=== PATIENT | female | born 1940 | race Caucasian/White ===

== ENCOUNTER → 2017-04-26 | Day surgery (SDC) | payer MEDICARE, BC ==
[~2017-04-26] VITALS: Ht 160 cm; Wt 67.0 kg
[~2017-04-26] MED LIST: ACETAMINOPHEN/HYDROcodone 325 MG/7.5 MG TAB ONE; ATEN50TA PO; ATOR40TA16 PO; BUPIVACAINE/EPINEPHRINE 0.5% 50 ML VIAL ONE; BUPIVACAINE/EPINEPHRINE 0.5% PF 10 ML VIAL ONE; CART120C PO; CHLORHEXIDINE GLUCONATE 2 % 1 PACK (2 CLOTHS) TOPICAL PRN; COUM5TAB PO; CYCL1TAB29 PO; DIGO0.25 PO; DIPH25CA PO; EPA1000C PO; FENO54TA PO; FLAX100013 PO; FOLBTAB2 PO; FOLITAB PO; FURO40TA PO; GLIM4TAB PO; HYDR-3534 PO; HYDR-3580 PO; INSULIN HUMAN REGULAR 1,000 UNITS/10 ML VIAL SQ PRN; ISOS20TA PO; ISOS30TA15 PO; JANU50TA4 PO; LACTATED RINGER'S 1000 ML INJ 1,000 ML ONE; LACTATED RINGER'S 1000 ML IV PRN; LEVO137T18 PO; LISI-515 PO; LISI40TA PO; METH500T3 PO; METO10TA PO; METOPROLOL TARTRATE 25 MG TAB PO PRN; MULTTAB67 PO; OMEGCAP PO; OMEP40CA2 PO; POTA-243 PO; POVIDONE IODINE 5% (ANTISEPSIS KIT) 4 APPLICATIONS EACH NARE PRN; PROPOFOL 200 MG/20 ML AMP IV ONE; PROZ40CA PO; SITA50 PO; SODIUM CHLOR 0.9% 250 ML INJ 250 ML ONE; SODIUM CHLORID 0.9% 500 ML IV PRN; SODIUM CHLORIDE 0.9% 20 ML VIAL ONE; TIMO0.5S30 EACH EYE; VANCOMYCIN 500 MG VIAL ONE
[2017-04-26 11:41] LABS: APTT (PATIENT) 24.6 SEC (24.3-30.1); PROTHROMBIN TIME - PATIENT 10.5 SEC (9.8-11.6)
[2017-04-26 14:41] VITALS: TEMP 99.1
--- NOTE | 2017-04-26 15:07 | RADRPT ---
EXAM DATE/TIME: 04/26/2017 14:28 [place] COMPARISON: No previous studies available for comparison. INDICATIONS : Stimulator placement in OR. MEDICAL HISTORY : None. SURGICAL HISTORY : Pacemaker. ENCOUNTER: Initial ACUITY: 1 day PAIN SCORE: Non-responsive. LOCATION: Thoracic spine FINDINGS: A single magnified C-arm spot view is a frontal projection of the thoracic spine. A metallic probe pr ojects towards a vertebral body and this is labeled T8. The tips of 2 graduated catheters are at the T8 level according to this image. CONCLUSION: Limited image as detailed above. Armando Judge Jr., MD on April 26, 2017 at 15:05 Board Certified Radiologist. This report was verified electronically.
[2017-04-26 15:25] VITALS: BP 162/70; PULSE 60; RESP 14; O2SAT 98
--- NOTE | 2017-04-27 10:52 | MP ---
cc: JAMEL SAL M.D. DATE OF SURGERY: 04/26/2017 DATE OF : 1940 PROCEDURE Implantation of Medtronic Octrode x2 for spinal cord stimulation. PREPROCEDURE DIAGNOSIS Failed back syndrome with intractable pain. POSTPROCEDURE DIAGNOSIS Failed back syndrome with intractable pain. PROCEDURE NOTE An IV was started in the holding area. The patient was given IV antibiotics. She signed her consent forms. The surgical site was marked. The patient was taken to the operating room, placed in the prone position, sedated and monitored by Anesthesia. All pressure points were checked and padded. Her lumbar area was prepped with ChloraPrep and draped with sterile drapes. Fluoroscopy was used to visualize the T12-L1 translaminar space. The skin was infiltrated with 0.5% Marcaine containing epinephrine. First a modified Tuohy needle from the Medtronic's kit was advanced into the epidural space slightly to the right of the midline using the [id number]-[id number] technique, and then a second needle was advanced slightly to the left of the midline. Medtronic Octrodes were threaded through the needles in a cephalad direction until the cephalad tip of each electrode was at the caudal border of T8 and the electrodes on each lead were fully covering T9 and T10. At this point the patient was awakened and stimulation took place at all of the electrodes. The patient felt the stimulation in her right and left leg extending from the buttocks down to her foot. The patient was then sedated again. Distal extension wires were connected to the stimulating leads by tightening an Brijesh screw and covering the connection with a Silastic cover secured at both ends with 2-0 Ethibond suture. Impedance was checked at the bedside and found to be appropriate throughout the lead and the distal extension wire. The stimulating wires and distal extension wires were then coiled in the subcutaneous pocket which was created in the lumbar midline. A tunneling device was used to tunnel the distal extension wires to exit on the patient's left flank. The lumbar incision was irrigated with Betadine and closure took place with 3-0 Monocryl in subcuticular tissue and 3-0 nylon on the skin. The incisions were covered with sterile adhesive dressings and the patient was taken to the recovery room with stable vital signs, neurologically intact. W. MD ARMIN Ovalle /2:43 PM /10:43 AM
== END | disposition home or self-care (01) ==
LOC: PHSDC 10:09
PROVIDERS: ATTEND Pain Medicine Interventional Pain Medicine
DX: M96.1 Postlaminectomy syndrome, not elsewhere classified (principal); I10 Essential (primary) hypertension; I49.9 Cardiac arrhythmia, unspecified; Z98.1 Arthrodesis status; Z95.0 Presence of cardiac pacemaker
CPT/HCPCS: 00300; 36415; 63650; 63685; 72020; 76000; 85610; 85730; C1778; J3370; J7050; J7120

== ENCOUNTER 2017-05-10 17:14 | Emergency (ER) | payer MEDICARE, BC ==
[~2017-05-10] VITALS: Ht 160 cm; Wt 66.1 kg
[~2017-05-10 17:14] MED LIST changes: -LACTATED RINGER'S 1000 ML INJ 1,000 ML ONE; -LIDOCAINE 1%/EPINEPHrine 1:100,000 SOLN 20 ML VIAL ONE; -SODIUM CHLORIDE 0.9% INJ 100 ML ONE; -VANCOMYCIN 500 MG VIAL ONE
[2017-05-10 17:29] VITALS: BP 171/70; PULSE 59; RESP 18; TEMP 98.3; O2SAT 96
--- NOTE | 2017-05-10 18:27 | PD ---
HPI Chief Complaint: Wound/Suture/Staple Re-Check Time Seen by Provider: 18:23 Travel History International Travel<30 days: No Contact w/Intl Traveler<30days: No Traveled to known affect area: No History of Present Illness HPI 76-year-old female presents to the emergency department with concern of a postsurgical gauze to her left lower back that is saturated in blood after having surgery for placement of a pain stimulating device today by Dr. Bernabe. She says she was discharged 5 PM and went to dinner and her friend noticed that the bandage was saturated. She has not removed the bandage to check the incision site. Denies anticoagulant therapy. Denies fever, vomiting. Denies lightheadedness, dizziness, headache. Symptoms are mild in severity. No known aggravating or relieving factors. She has no other medical complaints. No other modifying factors or associated signs and symptoms. PFSH Past Medical History Asthma: Yes Blood Disorders: No Heart Rhythm Problems: Yes Cancer: No Cardiovascular Problems: Yes (CARDIAC STENT X 1, PACEMAKER (MEDTRONIC)) High Cholesterol: Yes Chemotherapy: No Chest Pain: No Congestive Heart Failure: No Diabetes: Yes Patient Takes Glucophage: No Endocrine: Yes Gastrointestinal Disorders: Yes (GERD) Genitourinary: No Hepatitis: No Hiatal Hernia: Yes Hypertension: Yes Immune Disorder: No Musculoskeletal: Yes (BACK PAIN, ARTHRITIS) Neurologic: No Psychiatric: No Reproductive: Yes (HYSTERECTOMY) Respiratory: Yes (HX OF ASTHMA A CHILD) Radiation Therapy: No Sleep Apnea: No Thyroid Disease: No Tetanus Vaccination: < 5 Years Influenza Vaccination: Yes ?: Not Past Surgical History Abdominal Surgery: Yes (VAGOTOMY/ PYLORPLASTY, FUNDOPLICATION, APPY, CHOLECYSTECTOMY) AICD: No Body Medical Devices: CARDIAC STENT Cardiac Surgery: Yes (CARDIAC CATH X FEW, PACEMAKER PLACEMENT) Cholecystectomy: Yes Ear Surgery: No Endocrine Surgery: No Eye Surgery: No Genitourinary Surgery: No Gynecologic Surgery: Yes (TAHBSO) Hysterectomy: Yes Joint Replacement: No Oral Surgery: Yes (TONSILLECTOMY) Pacemaker: Yes (MEDTRONIC) Thoracic Surgery: No Tonsillectomy: Yes Other Surgery: Yes (BACK SURGERY 2 MONTHS AGO,9 GI SURGERIES) Social History Alcohol Use: No Tobacco Use: No Substance Use: No Allergies-Medications (Allergen,Severity, Reaction): Coded Allergies: adhesive tape (Verified Allergy, Severe, Rash, 11/6/17) PT PREFERS SILK TAPE penicillin G (Unverified Allergy, Severe, Hives, 05/10/17) meperidine (Unverified Allergy, Intermediate, Nausea/Vomiting, 05/10/17) morphine (Unverified Allergy, Intermediate, Nausea/Vomiting, 05/10/17) diazepam (Unverified Adverse Reaction, Severe, CRYING, 05/10/17) Reported Meds & Prescriptions Reported Meds & Active Scripts Active Reported [place]-3 Fish Oil/Vitamin (Fish Oil-Cholecalciferol) 1,000-1,000 Mg Cap 1 Cap PO DAILY Flexeril (Cyclobenzaprine HCl) 10 Mg Tab 10 Mg PO TID Virt-José 2.5-25-1 mg (Folic Acid-Vitamin B6-Vitamin) 1 Mg-2.5 Mg-25 Mg Tab Unknown Dose PO DAILY Isosorbide Mononitrate 20 Mg Tab 20 Mg PO DAILY Take 2 doses 7 hours apart. Furosemide 40 Mg Tab 40 Mg PO BID Fenofibrate 54 Mg Tab 54 Mg PO DAILY Janumet (Sitagliptin-Metformin) 50-500 Mg Tab 1 Tab PO BID Omeprazole 40 Mg Cap 40 Mg PO BID Metoclopramide (Metoclopramide HCl) 10 Mg Tab 10 Mg PO TID Cartia Xt (Diltiazem ER 24 HR) 120 Mg Caper 120 Mg PO DAILY Glimepiride 4 Mg Tab 4 Mg PO BID Digoxin 0.25 Mg Tab 0.25 Mg PO DAILY Lisinopril 40 Mg Tab 40 Mg PO DAILY Coumadin (Warfarin) 5 Mg Tab 5 Mg PO DAILY Diphenhydramine (Diphenhydramine HCl) 25 Mg Cap 25 Mg PO HS PRN Prozac (Fluoxetine HCl) 40 Mg Cap 40 Mg PO DAILY Folbee Plus (B-Complex W/ C & Folic Acid) 1 Tab 1 Tab PO DAILY Atorvastatin (Atorvastatin Calcium) 40 Mg Tab 40 Mg PO HS Hydrocodone-Acetaminophen 7.5-325 mg Tab 1 Tab PO Q6H PRN Levoxyl (Levothyroxine Sodium) 137 Mcg Tab 137 Mcg PO DAILY Atenolol 50 Mg Tab 50 Mg PO BID Klor-Con 10 (Potassium Chloride) 10 Meq Tab 20 Meq PO DAILY Timolol Opth Drops 0.5 % Soln 2 Drop EACH EYE BID Review of Systems Except as stated in HPI: all other systems reviewed are Neg Physical Exam Narrative GENERAL: Well-nourished, well-developed elderly, female patient, in no acute distress SKIN: Warm and dry. Left lower back with approximately 1cm surgical incision that is well approximated and with sutures intact; no active bleeding noted. Left abdominal surgical incision that is well approximated with sutures intact; minimal amount of serosanguineous drainage noted. HEAD: Atraumatic. Normocephalic. EYES: Pupils equal and round. No scleral icterus. No injection or drainage. ENT: Mucosa pink and moist. Airway patent. NECK: Trachea midline. CARDIOVASCULAR: Regular rate. RESPIRATORY: No accessory muscle use. GASTROINTESTINAL: Obese. MUSCULOSKELETAL: No obvious deformities. No clubbing. No cyanosis. No edema. NEUROLOGICAL: Awake and alert. Oriented 3. No obvious cranial nerve deficits. Motor grossly within normal limits. Normal speech. PSYCHIATRIC: Appropriate mood and affect; insight and judgment normal. Data Data Last Documented VS Vital Signs Date Time Temp Pulse Resp B/P (MAP) Pulse Ox O2 Delivery O2 Flow Rate FiO2 05/10/17 17:29 98.3 59 18 171/70 (103) 96 Orders Orders Ed Discharge Order (05/10/17 18:27) MDM Medical Decision Making Medical Screen Exam Complete: Yes Emergency Medical Condition: Yes Medical Record Reviewed: Yes Differential Diagnosis Bleeding from surgical incision site, medical clearance, less likely wound dehiscence Narrative Course 76-year-old female post surgical status and discharged proximally 5 PM tonight after having a pain stimulator unit surgically placed by Dr. Bernabe. I removed the dressings to the left lower back and left abdominal area. Both wounds are well approximated with sutures intact. There is minimal amount of piercing was drainage from the abdominal incision. There is no drainage noted from the left lower back incision. Dressings applied. Patient to follow-up with Dr. Bernabe. Discussed reasons to return to the emergency department. Instructed patient to follow up with primary care provider. Patient verbalizes understanding and agreement with treatment plan. Patient is medically cleared and stable for discharge. Discussed reasons to return to the emergency department. Patient agrees with treatment plan. The patients vital signs are stable and the patient is stable for outpatient follow-up and treatment. Patient discharged home, stable and in no acute distress. Diagnosis Primary Impression: bleeding from surgical incision site Additional Impression: medical clearance Referrals: Darrell Bernabe MD Primary Care Physician Patient Instructions: Care For Your Stitches (ED), General Instructions Additional Instructions: Change dressings as needed Follow-up with Dr. Bernabe Follow-up with primary care provider Return to the emergency department immediately with worsening of symptoms, particularly as discussed Med/Other Pt SpecificInfo: No Meds Exist/No RX given Disposition: 01 DISCHARGE HOME Condition: Stable Yulisa Rice [facility] May 10, 2017 18:27
== END 2017-05-10 18:41 | disposition home or self-care (01) ==
LOC: PHEFT 17:14
DX: L76.22 Postprocedural hemorrhage of skin and subcutaneous tissue following other procedure (principal); I10 Essential (primary) hypertension; E78.00 Pure hypercholesterolemia, unspecified; E11.9 Type 2 diabetes mellitus without complications; Z95.0 Presence of cardiac pacemaker; Z95.5 Presence of coronary angioplasty implant and graft; Z88.0 Allergy status to penicillin; Z79.01 Long term (current) use of anticoagulants; Z79.899 Other long term (current) drug therapy
CPT/HCPCS: 99281

== ENCOUNTER → 2017-05-10 | Day surgery (SDC) | payer MEDICARE, BC ==
[~2017-05-10] VITALS: Ht 160 cm; Wt 65.5 kg
[~2017-05-10] MED LIST changes: -ACETAMINOPHEN/HYDROcodone 325 MG/7.5 MG TAB ONE; -BUPIVACAINE/EPINEPHRINE 0.5% 50 ML VIAL ONE; -BUPIVACAINE/EPINEPHRINE 0.5% PF 10 ML VIAL ONE; -CHLORHEXIDINE GLUCONATE 2 % 1 PACK (2 CLOTHS) TOPICAL PRN; +CYCL10TA PO; -CYCL1TAB29 PO; -EPA1000C PO; -FLAX100013 PO; -INSULIN HUMAN REGULAR 1,000 UNITS/10 ML VIAL SQ PRN; -ISOS30TA15 PO; +KLOR10TA PO; -LACTATED RINGER'S 1000 ML IV PRN; +LIDOCAINE 1%/EPINEPHrine 1:100,000 SOLN 20 ML VIAL ONE; -LISI-515 PO; -METH500T3 PO; -METOPROLOL TARTRATE 25 MG TAB PO PRN; -MULTTAB67 PO; -POTA-243 PO; -POVIDONE IODINE 5% (ANTISEPSIS KIT) 4 APPLICATIONS EACH NARE PRN; -PROPOFOL 200 MG/20 ML AMP IV ONE; -SITA50 PO; -SODIUM CHLOR 0.9% 250 ML INJ 250 ML ONE; -SODIUM CHLORID 0.9% 500 ML IV PRN; -SODIUM CHLORIDE 0.9% 20 ML VIAL ONE; +SODIUM CHLORIDE 0.9% INJ 100 ML ONE
[2017-05-10 13:52] LABS: APTT (PATIENT) 26.8 SEC (24.3-30.1); PROTHROMBIN TIME - PATIENT 11.4 SEC (9.8-11.6)
[2017-05-10 16:13] VITALS: TEMP 98.6
[2017-05-10 16:45] VITALS: BP 176/73; PULSE 61; RESP 14; O2SAT 96
--- NOTE | 2017-05-11 07:01 | MP ---
cc: JAMEL SAL M.D. DATE OF SURGERY 05/10/2017 DATE OF 1940 PROCEDURE Implantation of Medtronics dual-channel non-rechargeable pulse generator for spinal cord stimulation. PREPROCEDURE DIAGNOSIS Failed back syndrome with intractable pain. POSTPROCEDURE DIAGNOSIS Failed back syndrome with intractable pain. PROCEDURE NOTE IV was started in the holding area. The patient was given IV antibiotics. Surgical consent forms were signed. The surgical site was marked. The patient was taken to the recovery room, placed in the left lateral decubitus position, sedated and monitored by Anesthesia. Distal extension wires on the patient's left flank were prepped with alcohol and cut with sterile scissors. Then the patient was prepped with Chloraprep and draped with sterile drapes. Then the lumbar incision was infiltrated with 1% lidocaine containing epinephrine and in the left subcostal area the skin was also infiltrated. The lumbar incision was reopened and the stimulating electrodes with the distal extension wires were exteriorized. The distal extension wires were disconnected by loosening an Brijesh screw and discarding the distal extension wires. Then an incision was made in the left subcostal area and a subcutaneous pocket was created. A tunneling device was used to tunnel the stimulating lead from the lumbar incision, around the left flank to the left subcutaneous pocket. Then the stimulating leads were connected to the Medtronics dual-channel non-rechargeable pulse generator by tightening an Brijesh screw. Impedance was checked at the bedside and found to be appropriate in all electrodes. Then the left abdominal incision and left lumbar incision were irrigated with Betadine. The redundant stimulating wires were coiled behind the pulse generator. The pulse generator was placed in the abdominal subcutaneous pocket and anchored to the underlying fascia using two 2-0 Ethibond sutures. Then the lumbar and abdominal incision were each closed using 3-0 Monocryl in the subcuticular tissue and 3-0 nylon on the skin. The incisions were covered with sterile adhesive dressings and the patient was taken to the recovery room with stable vital signs. WMD ANN-MARIE Hardwick/CARMELLA /4:11 PM /7:01 AM
== END | disposition home or self-care (01) ==
LOC: PHSDC 11:12
PROVIDERS: ATTEND Pain Medicine Interventional Pain Medicine
DX: M96.1 Postlaminectomy syndrome, not elsewhere classified (principal); E11.9 Type 2 diabetes mellitus without complications; I10 Essential (primary) hypertension; E78.00 Pure hypercholesterolemia, unspecified; J44.9 Chronic obstructive pulmonary disease, unspecified; I49.9 Cardiac arrhythmia, unspecified; Z95.0 Presence of cardiac pacemaker; Z01.818 Encounter for other preprocedural examination
CPT/HCPCS: 36415; 63685; 82948; 85610; 85730; C1767; J3010; J3370; J7120